=== PATIENT | female | born 1960 | race Hispanic/Latino ===

== ENCOUNTER 2021-07-25 16:29 | Emergency (ER) | payer OTHER ==
[~2021-07-25] VITALS: Ht 162.6 cm; Wt 99.3 kg
[2021-07-25 16:44] LABS: BASOPHILS % (AUTO) 0.1 % (0.0-5.0); HEMATOCRIT 43.1 % (36-48); LYMPHOCYTES % (AUTO) 27.6 % (21.0-51.0); MEAN CORPUSCULAR HEMOGLOBIN 28.7 pg (27.0-33.0); MEAN CORPUSCULAR HGB CONC 32.3 g/dL (32.0-36.0); MEAN CORPUSCULAR VOLUME 88.9 fL (79-99); MONOCYTES % (AUTO) 8.2 % (3.0-13.0); NEUTROPHILS % (AUTO) 63.9 % (40.0-77.0); PLATELET COUNT (AUTO) 286 K/uL (130-400); RED BLOOD CELL COUNT(AUTO) 4.85 MIL/uL (4.00-5.50); WHITE BLOOD COUNT (AUTO) 8.1 K/uL (4.8-10.8)
[2021-07-25 16:55] LABS: CREATININE 0.9 mg/dL (0.5-1.5); POTASSIUM 3.9 mmol/L (3.5-5.1)
[2021-07-25 16:59] LABS: ALBUMIN 3.8 g/dL (3.5-5.0); BILIRUBIN,TOTAL 0.4 mg/dL (0.2-1.0)
[2021-07-25 17:00] LABS: INR 1.01 (0.85-1.15)
[2021-07-25 17:02] LABS: PARTIAL THROMBOPLASTIN TIME 28.7 SEC (26.3-35.5)
[2021-07-25] MEDS ORDERED: DICYCLOMINE HCL 10 MG/5 ML ML PO ONE (17:07)
[2021-07-25 17:16] LABS: B-TYPE NATRIURETIC PEPTIDE 33 pg/mL (0-100)
[2021-07-25] MEDS ORDERED: MAG/ALUM/SIMETH 30 ML UDCUP PO ONE (17:30)
[2021-07-25] MEDS ORDERED: LIDOCAINE HCL 2% VISCOUS 15 ML UDCUP PO ONE (17:30)
[2021-07-25 19:09] VITALS: BP 127/82
[2021-07-25] MEDS ORDERED: ESOM20CA31 PO (19:14)
[2021-07-25] MEDS ORDERED: MAG-55 PO (19:14)
== END 2021-07-25 19:26 | disposition home or self-care (01) ==
LOC: EDH 16:29
DX: K21.9 Gastro-esophageal reflux disease without esophagitis (principal); R07.89 Other chest pain; Z79.899 Other long term (current) drug therapy; Z90.89 Acquired absence of other organs; Z98.890 Other specified postprocedural states
CPT/HCPCS: 36415; 71045; 80053; 82550; 83874; 83880; 84484; 85025; 85378; 85610; 85730; 93005